=== PATIENT | male | born 1995 | race Caucasian/White ===

== ENCOUNTER 2018-04-29 16:40 | Emergency (ER) | payer OTHER ==
[2018-04-29] MEDS ORDERED: Ibuprofen TAB* 600 MG PO ONE (18:00)
--- NOTE | 2018-04-29 18:07 | UC ---
Back Pain HPI - HPI Summary HPI Summary: 22 y/o male with h/o lower back pain with multiple dx's including possible CA, ruled out, with no formal dx', states lesions between T10-L2. Patient had h/ o chronic pain x 10 years, resolved over past 4-5 months. Yesterday fall in driveway on ice, immediate pain, no numbness, tingling, strength intact, no incontinuence bowel/ urine. Has not taken any pain medication - History of Current Complaint Chief Complaint: UCBackPain Stated Complaint: FALL,BACK PAIN Time Seen by Provider: 04/29/18 17:49 Hx Obtained From: Patient Onset/Duration: Sudden Onset, Lasting Days Timing: Constant Severity Initially: Moderate Severity Currently: Moderate Pain Intensity: 7 Pain Scale Used: 0-10 Numeric Character: Sharp, Throbbing, Spasmodic Aggravating Factor(s): Movement, Lifting, Bending Alleviating Factor(s): Rest Associated Signs And Symptoms: Negative: Bladder Incontinence, Bowel Incontinence, Pain with Weight Bearing - Allergies/Home Medications Allergies/Adverse Reactions: Allergies Allergy/AdvReac Type Severity Reaction Status Date / Time No Known Allergies Allergy Verified 04/29/18 17:32 Home Medications: Home Medications NK [No Home Medications Reported] 04/29/18 [History Confirmed 04/29/18] PMH/Surg Hx/FS Hx/Imm Hx Previously Healthy: Yes - Surgical History Surgical History: Yes Surgery Procedure, Year, and Place: UNDESCENDED TESTICLE AGE 3 - Social History Alcohol Use: None Substance Use Type: None Smoking Status (MU): Light Every Day Tobacco Smoker Type: Cigarettes Amount Used/How Often: 3 CIGS/DAY Length of Time of Smoking/Using Tobacco: 6 YEARS Review of Systems All Other Systems Reviewed And Are Negative: Yes Musculoskeletal: Positive: Arthralgia, Myalgia Is Patient Immunocompromised?: No Physical Exam Triage Information Reviewed: Yes Appearance: Well-Appearing, No Pain Distress, Well-Nourished Vital Signs: Initial Vital Signs Temp 98.6 F 04/29/18 17:33 Pulse 82 04/29/18 17:33 Resp 15 04/29/18 17:33 BP 130/69 04/29/18 17:33 Pulse Ox 99 04/29/18 17:33 Vital Signs Reviewed: Yes Eyes: Positive: Conjunctiva Clear Musculoskeletal Exam: Normal Musculoskeletal: Positive: Strength Intact, ROM Intact, No Edema, Other: - TTP over spine from T10-L4. + pain with palpation over paraspinal muscles adjacent. mild deformity noted over L1. Neurological Exam: Normal Neurological: Positive: Other: - patellar reflexes 2+ b/l, STrength with knee flex/ ext 5/5, DF/ PF 5/5 b/l, SITLT b/l ankles, - homans b/l, hip flexion strength intact b/l. Psychological Exam: Normal Skin Exam: Normal Skin: Positive: Other - skin intact, no rashes or break down Back Pain Course/Dx - Course Course Of Treatment: LUmbar CT to inlcude lower thoracic- Patient signed out to DR. Lundberg at 6:07. Order Information: CT SPINE LUMBAR W/O. Accession Number : [id number]. CPT: 26521. EXAM: CT Lumbar Spine Without Contrast. EXAM DATE /TIME: 04/29/2018 7:05 PM. CLINICAL HISTORY: 22 years old, male; Injury or trauma; Fall; Initial encounter; Blunt trauma. (contusions or hematomas); Injury date: 04.28.18; Injury details: PT states he. slipped backwards on a driveway, falling onto his back, has low back pain,. provider states pain extends up to t11, PT states a low back pain HX x 4- 5yrs,. has been told he has back lesions with no formal diagnosis; Additional info: Fall, lower back pain extending up to t11. TECHNIQUE: Axial computed tomography images of the lumbar spine without intravenous. contrast. All CT scans at this facility use at least one of these dose optimization. techniques: automated exposure control ; mA and/or kV adjustment per patient. size (includes targeted exams where dose is matched to clinical indication); or. iterative reconstruction. Coronal and sagittal reformatted images were created and reviewed. COMPARISON: [facility] MRI LUMBAR SPINE W/WO 09/28/2017 7:19 AM. FINDINGS: Vertebrae: No acute fracture. Normal alignment. Discs/Spinal canal/Neural foramina: Low attenuation lesion of the inferior. body of L4 without aggressive features. Appearance is similar to the comparison. MR examination. Degenerative disc disease at the L4-5 and L5-S1 levels with. central disc protrusions at both levels. This appearance is also similar to the. comparison MRI. Soft tissues: Unremarkable. IMPRESSION: 1. Multilevel degenerative disc disease. 2. No acute fracture, subluxation, or aggressive osseous lesion. 3. No change from the comparison study. To contact [facility] with a general question: Operations Center - [phone]. For direct physician to physician contact: Physician Hotline - [phone]. [facility] ([facility] Facility ID #[id number]) . . < Electronically signed by Dorian Davila MD in OV> 04/29/181941. I discussed the CT report with the patient and his partner. He's also taken some ibuprofen and had some decrease in pain. The overall plan is to rests and take ibuprofen as needed and follow-up if he is getting worse or has any other questions or concerns. - Differential Dx/Diagnosis Provider Diagnosis: Low back pain Discharge - Sign-Out/Discharge Documenting (check all that apply): Patient Departure All imaging exams completed and their final reports reviewed: Yes - Discharge Plan Condition: Stable Disposition: HOME Patient Education Materials: Acute Low Back Pain (ED), Lower Back Exercises (ED ) Forms: *Work Release Referrals: Mónica FRANCIS,Levon Marks [Primary Care Provider] - Additional Instructions: FOLLOW UP WITH YOUR DOCTOR IF NOT COMPLETELY IMPROVED. TAKE IBUPROFEN 600MG EVERY 6 HOURS NEEDED. GET RECHECKED SOONER WITH ANY WORSENING OF YOUR CONDITION; WEAKNESS, NUMBNESS, DIFFICULTY CONTROLLING BOWEL OR BLADDER OR QUESTIONS OR CONCERNS. - Billing Disposition and Condition Condition: STABLE Disposition: Home
[2018-04-29 19:16] VITALS: BP 116/55
== END 2018-04-29 19:57 | disposition home or self-care (01) ==
LOC: UCCORT 16:40
DX: M54.5 Low back pain (principal); F17.210 Nicotine dependence, cigarettes, uncomplicated; W00.0XXA Fall on same level due to ice and snow, initial encounter; Y92.9 Unspecified place or not applicable
CPT/HCPCS: 72131; 99212; A9270-GY; G0463

== ENCOUNTER 2018-07-09 14:29 | Emergency (ER) | payer SELFPAY ==
[2018-07-09 14:53] VITALS: BP 118/61
[2018-07-09 15:00] LABS: Influenza B Molecular POSITIVE (Negative)
--- NOTE | 2018-07-09 15:08 | UC ---
Respiratory Complaint HPI - HPI Summary HPI Summary: 22 yo male with < 12 hr hx of f/c, RHOADES, myalgias, runny nose and cough some nausea and vomiting earlier which has resolved able to tolerate food and liquids now - History of Current Complaint Chief Complaint: UCRespiratory Stated Complaint: HEADACHE,CONGESTION,ACHEY Time Seen by Provider: 07/09/18 14:51 Hx Obtained From: Patient Onset/Duration: Sudden Onset, Lasting Hours Timing: Constant Severity Initially: Mild Severity Currently: Moderate Pain Intensity: 6 Pain Scale Used: 0-10 Numeric Character: Cough: Nonproductive Aggravating Factors: Nothing Alleviating Factors: Nothing Associated Signs And Symptoms: Positive: Fever, Chills, URI, Nasal Congestion, Sinus Discomfort - Allergies/Home Medications Allergies/Adverse Reactions: Allergies Allergy/AdvReac Type Severity Reaction Status Date / Time No Known Allergies Allergy Verified 07/09/18 14:49 PMH/Surg Hx/FS Hx/Imm Hx Previously Healthy: Yes - Surgical History Surgical History: Yes Surgery Procedure, Year, and Place: UNDESCENDED TESTICLE AGE 3 - Family History Known Family History: Positive: Cardiac Disease, Hypertension, Diabetes - Social History Alcohol Use: Rare Substance Use Type: None Smoking Status (MU): Light Every Day Tobacco Smoker Type: Cigarettes Amount Used/How Often: 1 CIGS/DAY Length of Time of Smoking/Using Tobacco: 6 YEARS Review of Systems All Other Systems Reviewed And Are Negative: Yes Constitutional: Positive: Fever, Chills, Fatigue ENT: Positive: Nasal Discharge, Sinus Congestion, Sinus Pain/Tenderness Respiratory: Positive: Cough Gastrointestinal: Positive: Vomiting, Nausea Genitourinary: Positive: Negative Motor: Positive: Negative Neurovascular: Positive: Negative Musculoskeletal: Positive: Myalgia Neurological: Positive: Headache Psychological: Positive: Negative Physical Exam Vital Signs: Initial Vital Signs Temp 101.2 F 07/09/18 14:49 Pulse 102 07/09/18 14:49 Resp 17 07/09/18 14:49 BP 118/61 07/09/18 14:49 Pulse Ox 100 07/09/18 14:49 Respiratory Course/Dx - Course Course Of Treatment: influenza B + - Differential Dx/Diagnosis Provider Diagnosis: Influenza B Discharge - Sign-Out/Discharge Documenting (check all that apply): Patient Departure All imaging exams completed and their final reports reviewed: No Studies - Discharge Plan Condition: Stable Disposition: HOME Prescriptions: Oseltamivir CAP* [Tamiflu CAP*] 75 mg PO BID #10 cap Patient Education Materials: Influenza (ED) Forms: *Work Release Referrals: Levon Zarate [Primary Care Provider] - 5 Days (if not better) - Billing Disposition and Condition Condition: STABLE Disposition: Home
== END 2018-07-09 15:25 | disposition home or self-care (01) ==
LOC: UCCORT 14:29
DX: J10.1 Influenza due to other identified influenza virus with other respiratory manifestations (principal); F17.210 Nicotine dependence, cigarettes, uncomplicated
CPT/HCPCS: 99212; G0463

== ENCOUNTER 2018-12-26 14:18 | Emergency (ER) | payer SELFPAY ==
[2018-12-26 15:13] VITALS: BP 123/62
[2018-12-26] MEDS ORDERED: Fluorescein Sodium TOPICAL* 1 MG TEST STRIP OPHTHALMIC ONE (16:32)
[2018-12-26] MEDS ORDERED: Tetracaine 0.5% OPTH.SOL 4 ML* 1 DROP BTL RIGHT EYE ONE (16:33)
--- NOTE | 2018-12-26 16:33 | UC ---
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 his thinks that she saw a FB in the eye, but could not get it out. No longer visible. - History of Current Complaint Chief Complaint: UCEye Stated Complaint: RIGHT EYE COMPLAINT Time Seen by Provider: 12/26/18 16:27 Hx Obtained From: Patient Onset/Duration: Gradual Onset, Lasting Days - 2 Timing: Constant Severity Initially: Mild Severity Currently: Moderate Pain Intensity: 6 Location of Injury: Sclera Character: Sharp, Foreign Body Sensation Aggravating Factor(s): Blinking Alleviating Factor(s): Nothing Associated Signs And Symptoms: Positive: Drainage (Clear) - Risk Factors Penetrating Injury Risk Factor: Negative Globe Rupture Risk Factors: Negative Acute Glaucoma Risk Factors: Negative Optic Artery Occlusion Risk Factors: Negative - Allergies/Home Medications Allergies/Adverse Reactions: Allergies Allergy/AdvReac Type Severity Reaction Status Date / Time No Known Allergies Allergy Verified 12/26/18 15:08 Home Medications: Home Medications NK [No Home Medications Reported] 12/26/18 [History Confirmed 12/26/18] PMH/Surg Hx/FS Hx/Imm Hx Previously Healthy: Yes - Surgical History Surgical History: Yes Surgery Procedure, Year, and Place: UNDESCENDED TESTICLE AGE 3 - Family History Known Family History: Positive: Cardiac Disease, Hypertension, Diabetes - Social History Occupation: Employed Full-time Lives: With Family Alcohol Use: None Substance Use Type: None Smoking Status (MU): Light Every Day Tobacco Smoker Type: Cigarettes Amount Used/How Often: 1-2CIGS/DAY Length of Time of Smoking/Using Tobacco: 6 YEARS Review of Systems All Other Systems Reviewed And Are Negative: Yes Constitutional: Positive: Negative Eyes: Positive: Blurred Vision, Drainage, Eye Redness Neurological: Positive: Headache - relates this to eye irritation Is Patient Immunocompromised?: No Physical Exam Triage Information Reviewed: Yes Appearance: Well-Appearing, Pain Distress - mild, Thin Vital Signs: Initial Vital Signs Temp 99.0 F 12/26/18 15:08 Pulse 68 12/26/18 15:08 Resp 14 12/26/18 15:08 BP 123/62 12/26/18 15:08 Pulse Ox 100 12/26/18 15:08 Eyes: Positive: Conjunctiva Inflamed - right eye, Other: - applied tetracaine drops to right eye and ful-corrie; tiny embedded metallic foreign body identified at 7 o'clock position. Efforts to remove with needle tip, flushing with saline and q tip were ineffective. ENT: Positive: Pharynx normal Neck: Positive: Supple, Nontender, No Lymphadenopathy Respiratory: Positive: Lungs clear, Normal breath sounds Cardiovascular: Positive: RRR, No Murmur Eye Complaint Course/Dx - Course Course Of Treatment: erythrmomycin ointment pending removal. Will see Dr. Cedeno tomorrow in office for removal. - Differential Dx/Diagnosis Differential Diagnosis/HQI/PQRI: Corneal Abrasion, Foreign Body Provider Diagnosis: Foreign body of right eye - Physician Notification/Consults Discussed Patient Care With: Ezekiel Cedeno Time Discussed With Above Provider: 17:30 Discharge ED - Sign-Out/Discharge Documenting (check all that apply): Patient Departure All imaging exams completed and their final reports reviewed: No Studies - Discharge Plan Condition: Stable Disposition: HOME Patient Education Materials: Eye Foreign Body (ED) Forms: *Work Release Referrals: Levon Sales PA [Primary Care Provider] - Ezekiel Cedeno MD [Medical Doctor] - Additional Instructions: Dr. Cedeno's staff will call you around 8 am to arrange a visit for removal of foreign body int he right eye. Apply erythromycin ophthalmic ointment twice before bed to decrease the risk of infection. - Billing Disposition and Condition Condition: STABLE Disposition: Home
[2018-12-26] MEDS ORDERED: Ibuprofen TAB* 400 MG PO ONE (17:03)
[2018-12-26] MEDS ORDERED: Erythromycin OPTH OINT* APPLIC OINT RIGHT EYE ONE (17:46)
[2018-12-26] MEDS ORDERED: Erythromycin TOPICAL GEL* 30 GM TUBE TOPICAL SCH (21:00)
== END 2018-12-26 18:04 | disposition home or self-care (01) ==
LOC: UCCORT 14:18
DX: T15.91XA Foreign body on external eye, part unspecified, right eye, initial encounter (principal); X58.XXXA Exposure to other specified factors, initial encounter; Y93.89 Activity, other specified; Y92.009 Unspecified place in unspecified non-institutional (private) residence as the place of occurrence of the external cause; F17.210 Nicotine dependence, cigarettes, uncomplicated
CPT/HCPCS: 65220; 99213; A9270-GY; G0463